=== PATIENT | male | born 1940 | race Caucasian/White ===

== ENCOUNTER → 2018-06-23 | Outpatient (CLI) | payer MEDICARE ==
[~2018-06-23] MED LIST: ASPIR 8181 MG PO; ATORVASTATIN CA20 MG PO; CALCIUM +D & M1 EAC1 PO; DERMOTIC20 ML; FLOVENT DISKUS50 MCG; GABAPENTIN300 MG PO; LEVOXYL75 MCG PO; METFORMIN HCL500 MG PO; MULTIVITAMINS1 EAC7 PO; NASONEX17 GM; NORVASC5 MG PO; OMEPRAZOLE20 M1 PO; PROVENTIL HFA6.7 GM; TAMSULOSIN HCL0.4 MG PO; ULTRAM 50MG50 MG PO; [UNRECOGNIZED DRUG - OTHER]
--- NOTE | 2018-06-23 13:20 | Diagnostic Imaging Report ---
EXAM: Abdomen 1 Views INDICATION: \S\Personal history of urinary calculi COMPARISON: CT abdomen and pelvis 08/06/2017. FINDINGS: Mild amount of stool in the colon. No dilated loops of small bowel. No renal calculi. No abnormal soft tissue masses. Mild degenerative changes in the lumbar spine and pelvis. IMPRESSION: 1. No renal stones identified. 2. Previous left UVJ stone is no longer present. Previous punctate left renal stone may be too small to be seen on plain film x-ray. Signed by: Dr. Tree Westbrook M.D. on 06/23/2018 1:17 PM
== END ==
LOC: RAD 11:38
PROVIDERS: ATTEND Urology
DX: Z87.442 Personal history of urinary calculi (principal)
CPT/HCPCS: 74018

== ENCOUNTER → 2021-04-17 | Outpatient (CLI) | payer MEDICARE | LOC: RAD 15:29 | PROVIDERS: ATTEND Urology | DX: N20.0 Calculus of kidney (principal) | CPT/HCPCS: 74018 ==

== ENCOUNTER → 2021-12-06 | Outpatient (CLI) | payer MEDICARE | LOC: RAD 14:51 | PROVIDERS: ATTEND Internal Medicine | DX: M54.2 Cervicalgia (principal) | CPT/HCPCS: 72040 ==

== ENCOUNTER → 2021-12-27 | Outpatient (CLI) | payer MEDICARE | LOC: CT 09:25 | PROVIDERS: ATTEND Urology | DX: N20.0 Calculus of kidney (principal) | CPT/HCPCS: 74176 ==

== ENCOUNTER 2024-06-19 14:00 | Outpatient (RCR) | payer MEDICARE | END 2024-06-22 | LOC: PT 14:00 | PROVIDERS: ATTEND Internal Medicine | DX: R42 Dizziness and giddiness (principal) ==

== ENCOUNTER 2024-06-26 12:52 | Outpatient (RCR) | payer MEDICARE | END 2024-07-23 | LOC: PT 12:52 | PROVIDERS: ATTEND Internal Medicine | DX: R42 Dizziness and giddiness (principal) ==